=== PATIENT | male | born 1960 | race Caucasian/White ===

== ENCOUNTER 2019-01-31 06:07 | Day surgery (SDC) | payer OTHER ==
[2019-01-30 12:13] VITALS: BMI 25.1
[2019-01-31 06:34] VITALS: TEMP 97.4
[2019-01-31] MEDS ORDERED: LIDOCAINE HCL 1%, 10 MG/ML (20ML VIAL) ONE (07:13)
[2019-01-31] MEDS ORDERED: BUPIVACAINE HCL/PF 0.5% (5MG/ML) 10 ML VIAL ONE (07:13)
[2019-01-31] MEDS ORDERED: DEXAMETHASONE SOD PHOSPHATE 4 MG/1 ML VIAL ONE ×2 (07:13→08:24)
[2019-01-31] MEDS ORDERED: BENZOIN TINCTURE SWABSTICK TP ONE (07:13)
[2019-01-31] MEDS ORDERED: ceFAZolin SODIUM 1 GM VIAL IVPB ONE (07:40)
[2019-01-31] MEDS ORDERED: MIDAZOLAM HCL 2 MG/2 ML SINGLE DOSE VIAL ONE ×4 (07:45→08:25)
[2019-01-31] MEDS ORDERED: KETOROLAC TROMETHAMINE 30 MG/1 ML VIAL ONE (08:24)
[2019-01-31 10:37] VITALS: BP 122/70; PULSE 52
--- NOTE | 2019-02-03 14:53 | PATH ---
Surgical Pathology Report Patient Name: [facility]. Rec. #: [id number] /Age/Gender: 1960 (Age: 58) / M Account: [id number] Location: [facility] SURGICAL Taken: 01/31/2019 Received: 01/31/2019 Reported: 02/03/2019 Physicians: Triston Clark DPM Specimen(s) Received BONE AND SKIN RIGHT FOOT Clinical History Right foot bunionectomy Final Diagnosis FOOT, RIGHT, BONE, BUNIONECTOMY: BONE WITH DEGENERATIVE CHANGES. SKIN WITHOUT SIGNIFICANT PATHOLOGIC FINDINGS. Electronically Signed Kiersten Quiros M.D. Gross Description Received in formalin labeled "bone right foot," is a 2.5 x 2.1 x 0.3 cm aggregate of sims bone fragments. Also received within the same container is a 1.3 x 0.4 cm sims, elliptical, unremarkable portion of skin. Assistant Broker sections are submitted in one cassette, following decalcification. /01/31/2019 [facility]01/31/2019
--- NOTE | 2019-02-12 00:14 | OP ---
DATE OF OPERATION: 01/31/2019 SURGEON: Triston Clark DPM LIVE STUDY MANAGER: Mayito Gómez DPM PREOPERATIVE DIAGNOSIS: Hallux valgus right foot with hammertoe second toe right foot. POSTOPERATIVE DIAGNOSIS: Hallux valgus right foot with hammertoe second toe right foot. PROCEDURE: Modified [place] bunionectomy right foot. Arthroplasty 2nd toe proximal interphalangeal joint right foot. DESCRIPTION OF PROCEDURE: After noting all preoperative vital signs within normal limits, and after the surgical consent was signed and witnessed, the patient was brought to the OR, placed on a table in the supine position. Once the patient was on the table, an IV line had been started, and a local infiltrate was put in to place around the 1st metatarsal and 2 metatarsophalangeal joint in a Shankar block fashion after the patient had received sedation. Once the foot was blocked it was then prepped and draped in usual sterile fashion. A well padded ankle tourniquet had been applied to the right ankle prior to the prep. The foot was then elevated and exsanguinated, and the tourniquet was elevated to 250 mmHg. Once this was done, attention was directed to the 1st metatarsophalangeal joint where where a 6-cm long curvilinear incision was curetted. This incision was deepened using sharp and blunt dissection dissection to the level of the joint capsule. All unavoidable vessels were ligated in this fashion, all other neurovascular structures were retracted out of surgical site. At this time, an inverted L incision was created over the capsule exposing the dorsal and medial eminence. All soft tissue was liberated from the dorsal medial and lateral aspects. Utilizing a sagittal saw, the dorsal, medial, and lateral exostoses were resected and sent down to pathology. The area was then remodeled using a rotary bur, and it was noted to be smooth in those 3 areas. The metatarsal head cartilage was inspected, and it was noted that approximately 40% of the cartilage on the plantar lateral aspect was deteriorated. Utilizing a 0.045 K-wire, 5 drill holes were created into this cartilaginous area to allow for regrowth of fibrocartilage at this point. The area was then flushed with copious amounts of sterile saline that had antibiotic added to it. Once this was done, attention was directed to the 2nd toe of the right foot where 2 converging semielliptical incisions were created over the proximal interphalangeal joint. Once this incision was created, a wedge of skin was resected and sent down to pathology. Utilizing a 15 blade going from medial to lateral, the extensor tendon was identified and transected, reflected proximally, exposing the head of the proximal phalanx. All soft tissue was then liberated from the head of the proximal phalanx, paying careful attention not to transect the flexor tendon on the plantar aspect. All unavoidable vessels were ligated in usual fashion. All other neurovascular structures were retracted out of surgical site. Utilizing a sagittal saw going from dorsal to plantar, the distal 1/3 of the 2nd proximal phalanx was resected, and this specimen was sent down to pathology. The area was inspected. There were no remaining spicules noted. The area was smooth. A wedge was removed from the medial distal aspect in a 45-degree angle so as not to allow for an exostosis that would cause pain post surgery. The area was then flushed once again with copious amounts of sterile saline that had antibiotic added to it. Attention was then directed to the proximal interphalangeal joint; utilizing 3-0 Vicryl, the extensor tendon was reattached in a simple interrupted suture fashion. Skin was then closed over the 2nd toe using 4-0 nylon in a simple interrupted suture fashion . Attention was then redirected to the 1st metatarsophalangeal joint where 2-0 Vicryl, 3-0 Vicryl, and 4-0 Vicryl were utilized to reapproximate capsule and subcutaneous tissue. 5-0 Vicryl was then utilized in a subcuticular fashion to close the skin, the toe was put through a range of motion, noted to have excellent range of motion with no crepitus noted. Once this was done, Steri-Strips were then applied. A postoperative injection was put into place. Betadine soaked Adaptic, dry sterile gauze, and a Ghanshyam dressing were then applied. The tourniquet was deflated and capillary filling time was right foot. Patient tolerated the anesthesia and the procedure well. Patient returned to the recovery room vital signs stable and vascular status intact. JORDAN Fernández/[id number]
== END 2019-01-31 10:54 | disposition home or self-care (01) ==
LOC: JASU-SURG 06:07
PROVIDERS: ATTEND Podiatrist Foot Surgery
PROC: 0QBQ0ZZ Excision of Right Toe Phalanx, Open Approach (ICD-10-PCS; 2019-01-31)
PROC: 0SRP0JZ Replacement of Right Toe Phalangeal Joint with Synthetic Substitute, Open Approach (ICD-10-PCS; principal; 2019-01-31 07:30)
DX: M20.11 Hallux valgus (acquired), right foot (principal); M20.41 Other hammer toe(s) (acquired), right foot
CPT/HCPCS: 73630-TC-RT-FY; 88304-TC; 88311-TC; 97116-GP